=== PATIENT | female | born 1960 | race Caucasian/White ===

== ENCOUNTER 2024-11-20 16:12 | Emergency (ER) | payer MEDICARE, BC, SELFPAY ==
[2024-11-20] VITALS (7 sets, daily range): BP systolic 116–148; BP diastolic 59–71; PULSE 65–76; RESP 10–18; TEMP 36.4; O2SAT 97–100; BMI 25.7
--- NOTE | 2024-11-20 16:20 | DI.RAD.S_ITS ---
PROCEDURE: XR CHEST 1V INDICATIONS: chest pain TECHNIQUE: One view of the chest was acquired. COMPARISON: None. FINDINGS: Surgical changes and devices: None. Lungs and pleura: Lungs are clear. No pleural effusions or pneumothorax. Mediastinum: Mediastinal contours appear normal. Heart size is normal. Bones and chest wall: No suspicious bony lesions. Age-appropriate bony degenerative changes are seen. Truncation of the left distal clavicle can be seen. Overlying soft tissues appear unremarkable. IMPRESSION: Portable chest within normal limits for age. Additional findings: Truncation of the left distal clavicle Dictated by: Seng Calvillo M.D. on 11/20/2024 at 15:56 Approved by: Seng Calvillo M.D. on 11/20/2024 at 15:57
--- NOTE | 2024-11-20 16:24 | EKG_ITS ---
[facility] [address] [place] [address] Test Date: 2024-11-20 Pat Name: Chicho De Leon Department: [facility] Room: Gender: Female Technical Coordinator: MARIANA FLORENCE : 1960 Requested By: Order Number: [id number] Reading MD: Crispin Stokes Measurements Intervals [place] Rate: 74 P: -20 TN: 116 QRS: 12 QRSD: 74 T: 52 QT: 378 QTc: 419 Interpretive Statements Normal sinus rhythm Minimal voltage criteria for LVH, may be normal variant ( R in aVL ) Electronically Signed On 11-21-2024 7:24:55 PST by Crispin Stokes
[2024-11-20 16:43] LABS: Add Manual Diff / Slide Review NO; Basophils Absolute Auto 100 /uL (0-100); Basophils Percent Auto 0.9 % (0-2); Eosinophils Absolute Auto 500 /uL (0-450); Eosinophils Percent Auto 8.8 % (2-4); Hematocrit 40.2 % (36-46); Hemoglobin 13.6 g/dL (12.0-16.0); Lymphocytes Absolute Auto 1600 /uL (1100-4500); Mean Corpuscular HGB Conc 33.9 % (30-36); Mean Corpuscular Hemoglobin 30.2 PG (26-34); Mean Corpuscular Volume 88.9 fL (80-100); Monocytes Absolute Auto 600 /uL (0-900); Monocytes Percent Auto 9.2 % (3-14); Neutrophils Absolute Auto 3300 /uL (1500-7000); Neutrophils Percent Auto 54.1 % (50-75); Platelet Count 269 X10^3/uL (150-400); Red Blood Cell Count 4.52 X10^6/uL (4.0-5.2); Red Cell Distribution Width 12.8 % (11.6-14.8); White Blood Cell Count 6.1 X10^3/uL (4.5-11.0)
[2024-11-20 16:50] LABS: INR 0.9 (0.9-1.3)
[2024-11-20 16:53] LABS: PTT Partial Thromboplastin Tim 31 SECONDS (25.1-36.5)
[2024-11-20 16:55] LABS: Alanine Aminotransferase 56 IU/L (<35); Albumin 4.3 g/dL (3.5-5.0); Albumin Globulin Ratio 1.6 (1.0-2.8); Alkaline Phosphatase 54 U/L (38-126); Aspartate Aminotransferase 48 IU/L (14-36); BUN Creatinine Ratio 20.2 (6-22); Bilirubin Total 0.4 mg/dL (0.2-1.3); Blood Urea Nitrogen 24 mg/dL (7-17); Calcium 9.2 mg/dL (8.4-10.2); Carbon Dioxide 26 mmol/L (22-32); Chloride 104 mmol/L (98-107); Creatine Kinase 79 U/L (30-135); Estimated Glomerular Filt Rate 51 mL/min (>60); Globulin 2.7 g/dL (1.7-4.1); Glucose 135 mg/dL (80-110); HEMOLYSIS < 15 (0-50); Lipase 117 U/L (23-300); Magnesium 1.8 mg/dL (1.6-2.3); Potassium 4.1 mmol/L (3.4-5.1); Sodium 139 mmol/L (137-145)
[2024-11-20 17:06] LABS: NT-proBNP (BNP-Adult 18+) 77 pg/mL (<125); Troponin I < 0.012 ng/mL (0.01-0.034)
== END 2024-11-20 19:32 | disposition left against medical advice (07) ==
PROVIDERS: Emergency Medicine; Emergency Provider Student in an Organized Health Care Education/Training Program
DX: R00.2 Palpitations (principal); R07.9 Chest pain, unspecified
CPT/HCPCS: 36415; 71045; 80053; 82550; 83690; 83735; 83880; 84484; 85025; 85610; 85730; 93005; 99283